=== PATIENT | female | born 1960 | race Caucasian/White ===

== ENCOUNTER 2024-01-31 19:10 | Emergency (ER) | payer SELFPAY ==
[2024-01-31 19:34] VITALS: BP 131/80; PULSE 65; RESP 16; TEMP 98.2; BMI 26.4
== END 2024-01-31 20:08 | disposition home or self-care (01) ==
LOC: FER 19:10
DX: S50.12XA Contusion of left forearm, initial encounter (principal); W23.0XXA Caught, crushed, jammed, or pinched between moving objects, initial encounter
CPT/HCPCS: 99283-25